=== PATIENT | female | born 1970 | race Caucasian/White ===

== ENCOUNTER 2020-09-26 09:38 | Emergency (ER) | payer OTHER, SELFPAY ==
[2020-09-26] VITALS (15 sets, daily range): BP systolic 115–203; BP diastolic 75–147; PULSE 76–120; RESP 12–20; TEMP 36.9; O2SAT 96–100; BMI 23.3
--- NOTE | 2020-09-26 09:41 | ED_ITS ---
Documented by User: ARY Navas 09/26/20 11:26 HPI - Syncope General: Chief Complaint: Syncope Stated Complaint: SYNCOPE, NOSE, NECK PAIN Time Seen by Provider: 09/26/20 09:41 Source: patient Mode of arrival: ambulatory Limitations: no limitations History of Present Illness: HPI narrative: 49-year-old female comes in today for complaints of syncopal episode. Patient reports that she got up to go get dressed from bed and became lightheaded so she sat back down, after sitting down patient does not remember getting back up and walking down the robert and then passing out. Patient has some ecchymosis to the nasal bridge with some mild swelling. Patient is alert and oriented at baseline. Patient takes no routine medications. Patient does have a history of hypertension with medication use. Patient reports no chest pain. Patient does report mild headache since falling. Review of Systems General: Reports: 10 or more systems reviewed and unremarkable except in HPI and below Neuro: Reports: other (syncope) ON LICENSE OF [facility] ED PFSH: Medical History (Updated 09/26/20 @ 12:28 by Ciro Garcia DO) Hypertension Physical Exam Const: COMMON NORMALS: no acute distress, patient oriented x3 and alert GENERAL APPEARANCE: cooperative HENMT: COMMON NORMALS: Normal external nose present HEAD & SCALP: normal to inspection NOSE: Normal external nose present MOUTH: Normal oral and palatal mucosa present THROAT: posterior oropharynx normal OTHER: Mild ecchymosis to the nasal bridge with some swelling, no blood in the naris, small abrasion to the right upper lip. Eye: GENERAL EYE: appearance normal, both eyes and all related structures Neck/C-Spine: COMMON NORMALS: full ROM Lymph: LYMPHATIC: no lymphadenopathy noted Chest: COMMONS NORMALS: normal inspection of the chest Resp: COMMON NORMALS: normal respiratory effort EFFORT & INSPECTION: Yes able to speak in complete sentences Cardio: COMMON NORMALS: regular rate and regular rhythm RATE: regular rate RHYTHM: regular rhythm GI: COMMON NORMALS: non-tender Back/Pelvis: COMMON NORMALS: thoracic and lumbar spine normal to inspection Extremity: COMMON NORMALS: normal to inspection Neuro: COMMON NORMALS: patient oriented x3 and moves all extremities SENSORIUM/ORIENTATION: Yes alert SPEECH: speech normal MOTOR EXAM: 5/5 motor strength present throughout Psych: COMMON NORMALS: mental status grossly normal and cooperative Skin: COMMON NORMALS: no rashes or lesions noted GENERAL SKIN EXAM: no r ashes or lesions noted Course ED course: 1005, was notified by Dr. Euceda, radiologist, patient has significant subarachnoid bleeding. Reviewed with Dr. Garcia who assumed care of patient. Vital Signs: Vital signs: Vital Signs Temperature 98.4 F 09/26/20 09:39 Pulse Rate 85 09/26/20 13:07 Respiratory Rate 16 09/26/20 13:07 Blood Pressure 115/75 09/26/20 13:07 Pulse Oximetry 99 09/26/20 13:07 MDM - Syncope Lab Data: Labs: Lab Results 09/26/20 09/26/20 09/26/20 Range/Units 08:55 08:55 08:55 WBC 6.5 (4.0-10.0) 10^3/ uL RBC 4.65 (4.1-5.3) 10^6/u L Hgb 13.5 (11.5-15.3) g/dL Hct 41.7 (37.0-47.0) % MCV 89.7 (81-99) fL MCH 29.0 (28.0-34.0) pg MCHC 32.4 (30.0-36.0) g/dL RDW 12.5 (12.1-15.1) % Plt Count 246 (130-400) 10^3/c mm MPV 11.7 H (7.4-10.4) fL Neut % (Auto) 54.7 % Lymph % (Auto) 32.0 % Vilas % (Auto) 10.4 % Eos % (Auto) 2.1 % Baso % (Auto) 0.5 % Neut # (Auto) 3.57 (1.8-7.7) 10^3/u L Lymph # (Auto) 2.1 (0.8-4.8) 10^3/u L Vilas # (Auto) 0.7 (0.2-0.9) 10^3/u L Eos # (Auto) 0.1 (0.0-0.8) 10^3/u L Baso # (Auto) 0.0 (0.0-0.1) 10^3/u L Nucleated RBC % (a uto) 0 % Nucleated RBCs # 0.0 /100WBC PT (12.1-14.9) SECO NDS INR (0.8-1.2) APTT (23.9-36.7) SECO NDS Sodium 137 (136-145) mmol/L Potassium 3.8 (3.5-5.1) mmol/L Chloride 101 (98-107) mmol/L Carbon Dioxide 25 (22-29) mmol/L Anion Gap 14.8 (5-19) BUN 10 (6-20) mg/dL Creatinine 0.7 (0.5-0.9) mg/dL GFR Calculation 88.2 L (90-130) mL/min Glucose 119 H (65-115) mg/dL Calculated Osmolal ity 284 L (285-295) mOsm/k g Calcium 8.9 (8.5-10.5) mg/dL Total Bilirubin 0.2 (0.15-1.2) mg/dL AST 19 (0-32) U/L ALT 16 (0-33) U/L Alkaline Phosphata se 96 (35-105) IU/L Troponin T Baselin e 6 (0-10) ng/L Troponin T 120 Min [place] (0-10) ng/L Delta Troponin T (0-10) ABS# Total Protein 6.9 (6.6-8.7) g/dL Albumin 4.2 (3.5-5.2) g/dL Globulin 2.7 (1.3-4.6) g/dL HCG, Qual (Negative) Urine Color (Yellow) Urine Appearance (CLEAR) Urine pH (5-7) Ur Specific Gravit y (1.005-1.030) Urine Protein (Negative) Urine Glucose (UA) (Normal) Urine Ketones (Negative) Urine Blood (Negative) Urine Nitrate (Negative) Urine Bilirubin (Negative) Prot Sulfosalicyli c Acd (Negative) Urine Urobilinogen (Negative) mg/dL Ur Leukocyte Melinda ase (Negative) SARS-CoV-2 Ag (Rap id) (Negative) 09/26/20 09/26/20 09/26/20 Range/Units 08:55 10:05 10:55 WBC (4.0-10.0) 10^3/ uL RBC (4.1-5.3) 10^6/u L Hgb (11.5-15.3) g/dL Hct (37.0-47.0) % MCV (81-99) fL MCH (28.0-34.0) pg MCHC (30.0-36.0) g/dL RDW (12.1-15.1) % Plt Count (130-400) 10^3/c mm MPV (7.4-10.4) fL Neut % (Auto) % Lymph % (Auto) % Vilas % (Auto) % Eos % (Auto) % Baso % (Auto) % Neut # (Auto) (1.8-7.7) 10^3/u L Lymph # (Auto) (0.8-4.8) 10^3/u L Vilas # (Auto) (0.2-0.9) 10^3/u L Eos # (Auto) (0.0-0.8) 10^3/u L Baso # (Auto) (0.0-0.1) 10^3/u L Nucleated RBC % (a uto) % Nucleated RBCs # /100WBC PT (12.1-14.9) SECO NDS INR (0.8-1.2) APTT (23.9-36.7) SECO NDS Sodium (136-145) mmol/L Potassium (3.5-5.1) mmol/L Chloride (98-107) mmol/L Carbon Dioxide (22-29) mmol/L Anion Gap (5-19) BUN (6-20) mg/dL Creatinine (0.5-0.9) mg/dL GFR Calculation (90-130) mL/min Glucose (65-115) mg/dL Calculated Osmolal ity (285-295) mOsm/k g Calcium (8.5-10.5) mg/dL Total Bilirubin (0.15-1.2) mg/dL AST (0-32) U/L ALT (0-33) U/L Alkaline Phosphata se (35-105) IU/L Troponin T Baselin e (0-10) ng/L Troponin T 120 Min [place] 9.20 (0-10) ng/L Delta Troponin T 3.20 (0-10) ABS# Total Protein (6.6-8.7) g/dL Albumin (3.5-5.2) g/dL Globulin (1.3-4.6) g/dL HCG, Qual Negative (Negative) Urine Color Yellow (Yellow) Urine Appearance Clear (CLEAR) Urine pH 9 H (5-7) Ur Specific Gravit y 1.015 (1.005-1.030) Urine Protein Neg (Negative) Urine Glucose (UA) Norm (Normal) Urine Ketones Negative (Negative) Urine Blood Neg (Negative) Urine Nitrate Negative (Negative) Urine Bilirubin Neg (Negative) Prot Sulfosalicyli c Acd Negative (Negative) Urine Urobilinogen Norm (Negative) mg/dL Ur Leukocyte Melinda ase Negative (Negative) SARS-CoV-2 Ag (Rap id) (Negative) 09/26/20 09/26/20 Range/Units 10:55 11:35 WBC (4.0-10.0) 10^3/ uL RBC (4.1-5.3) 10^6/u L Hgb (11.5-15.3) g/dL Hct (37.0-47.0) % MCV (81-99) fL MCH (28.0-34.0) pg MCHC (30.0-36.0) g/dL RDW (12.1-15.1) % Plt Count (130-400) 10^3/c mm MPV (7.4-10.4) fL Neut % (Auto) % Lymph % (Auto) % Vilas % (Auto) % Eos % (Auto) % Baso % (Auto) % Neut # (Auto) (1.8-7.7) 10^3/u L Lymph # (Auto) (0.8-4.8) 10^3/u L Vilas # (Auto) (0.2-0.9) 10^3/u L Eos # (Auto) (0.0-0.8) 10^3/u L Baso # (Auto) (0.0-0.1) 10^3/u L Nucleated RBC % (a uto) % Nucleated RBCs # /100WBC PT 12.20 (12.1-14.9) SECO NDS INR 0.88 (0.8-1.2) APTT 24.0 (23.9-36.7) SECO NDS Sodium (136-145) mmol/L Potassium (3.5-5.1) mmol/L Chloride (98-107) mmol/L Carbon Dioxide (22-29) mmol/L Anion Gap (5-19) BUN (6-20) mg/dL Creatinine (0.5-0.9) mg/dL GFR Calculation (90-130) mL/min Glucose (65-115) mg/dL Calculated Osmolal ity (285-295) mOsm/k g Calcium (8.5-10.5) mg/dL Total Bilirubin (0.15-1.2) mg/dL AST (0-32) U/L ALT (0-33) U/L Alkaline Phosphata se (35-105) IU/L Troponin T Baselin e (0-10) ng/L Troponin T 120 Min [place] (0-10) ng/L Delta Troponin T (0-10) ABS# Total Protein (6.6-8.7) g/dL Albumin (3.5-5.2) g/dL Globulin (1.3-4.6) g/dL HCG, Qual (Negative) Urine Color (Yellow) Urine Appearance (CLEAR) Urine pH (5-7) Ur Specific Gravit y (1.005-1.030) Urine Protein (Negative) Urine Glucose (UA) (Normal) Urine Ketones (Negative) Urine Blood (Negative) Urine Nitrate (Negative) Urine Bilirubin (Negative) Prot Sulfosalicyli c Acd (Negative) Urine Urobilinogen (Negative) mg/dL Ur Leukocyte Melinda ase (Negative) SARS-CoV-2 Ag (Rap id) Negative (Negative) EKG Data^: EKG 1: Attestation: I personally reviewed and interpreted this EKG as follows: (957, EKG shows sinus rhythm, regular rate at 77 bpm, artifact is present, minimal ST depression is noted in lead V3 and lead III, no prior exam is available for comparison.) Discharge Plan Discharge Patient Disposition: Xfer Short-Term Hosp Clinical Impression: Subarachnoid hemorrhage, Hypertension Condition: Critical Coding Level of Care Code ED Coronary Clinical Specialist for Chg Fwd Exam Comprehensive Documented by User: Ciro Garcia DO 09/26/20 15:43 HPI - Syncope General: Chief Complaint: Syncope Stated Complaint: SYNCOPE, NOSE, NECK PAIN Time Seen by Provider: 09/26/20 09:41 History of Present Illness: HPI narrative: Patient presented to the emergency room while I was assisting with a critical patient in the viral ICU. Upon my return to [facility] with the nurse practitioner had seen her when she first arrived. She had come in complaining that she got dizzy and nauseous stumbled and fell. She reports a severe headache. She previously had been treated for hypertension but is not been taking her medications lately because she felt like things had improved. She was awake and alert and oriented with a GCS of 15 when I first encountered the patient in the CT scanner suite. Patient returned to the trauma room for further examination. MD complaint: felt faint, almost passed out, collapsed and other (Sudden onset of headache) Onset (ago): hour(s) Prodromal symptoms: lightheaded and nausea/vomiting Witnessed: Yes - by Bystander Associated symptoms: Reports headache(s), lightheadedness, nausea, vertigo and weakness; Deny fever(s) Treatments prior to arrival: none Review of Systems Const: Denies: fever(s), chills, body aches, change in appetite, fatigue or malaise ENMT: Denies: throat pain, ear or mastoid pain, nasal discharge or nasal congestion Card: Reports: lightheadedness Resp: Denies: dyspnea, productive cough or non-productive cough GI: Reports: nausea : Denies: flank pain, difficulty voiding, dysuria, urinary frequency or urinary urgency Skin/Breast: Denies: rash or pruritus Neuro: Reports: headache(s), weakness in extremities, dizziness and vertigo ON LICENSE OF [facility] ED PFSH: Medical History (Updated 09/26/20 @ 12:28 by Ciro Garcia DO) Hypertension Physical Exam Const: COMMON NORMALS: no acute distress and patient oriented x3 GENERAL APPEARANCE: cooperative and comfortable ORIENTATION/CONSCIOUSNESS: Yes awake, Yes oriented to person, Yes oriented to place and Yes oriented to time HENMT: COMMON NORMALS: normocephalic, atraumatic and hearing grossly normal bilaterally HEAD & SCALP: normocephalic and atraumatic Neck/C-Spine: COMMON NORMALS: full ROM, no lymphadenopathy, supple and no JVD Resp: COMMON NORMALS: normal respiratory effort, No retractions, No use of accessory muscles and clear to auscultation bilaterally AUSCULTATION: clear to auscultation bilaterally Cardio: COMMON NORMALS: no JVD, regular rate, regular rhythm and No murmurs present (Cardio) RATE: regular rate RHYTHM: regular rhythm GI: COMMON NORMALS: Soft to palpation and No hepatosplenomegaly present AUSCULTATION: Yes normoactive bowel sounds PALPATION: Yes Soft to palpation, No Tenderness to palpation present (GI), No Guarding due to palpation present (GI) and Yes No hepatosplenomegaly present Extremity: COMMON NORMALS: normal to inspection, capillary refill normal, no clubbing, cyanosis or edema, no calf tenderness and no pedal edema Neuro: COMMON NORMALS: patient oriented x3, CN's II-XII intact bilaterally, moves all extremities, no focal motor deficits and no sensory deficits noted SENSORIUM/ORIENTATION: Yes oriented to person, Yes oriented to place and Yes oriented to time COORDINATION/BALANCE: [id number]-[id number] test normal and vkjx-um-[id number] test normal SPEECH: speech normal SENSORY EXAM: No sensory level loss detected MOTOR EXAM: 5/5 motor strength present throughout COORDINATION: araaqg-nd-upcc test normal and yrum-bj-[id number] test normal OTHER: GCS on arrival of 15 Skin: COMMON NORMALS: no rashes or lesions noted GENERAL SKIN EXAM: no rashes or lesions noted Procedures Intubation Time out performed: Yes sedative: Etomidate paralytic: Succinylcholine Laryngoscope: fiber optic video scope Assist Device Used: fiber optic device ET Tube Size: 8.5 ET Tube Uncuffed: No Tube Secured Depth (cm): 22 Tube Secured Location: teeth Tube Placement Confirmation: visualized tube passing through cords, equal breath sounds bilaterally, no breath sounds over epigastrium and confirmation by capnometry Patient Tolerated Procedure: well Intubation Complications: none Additional Comments: Immediately after intubation patient had some mild hypoxia which was transient we confirmed capnometry and confirmed tube placement by auscultation, which is also later verified by chest x-ray. FiO2 was increased until oxygen saturation achieved 100% and then we decreased the FiO2. Patient is sats improved to normal and stabilized. Course Vital Signs: Vital signs: Vital Signs Temperature 98.4 F 09/26/20 09:39 Pulse Rate 85 12/24/20 13:07 Respiratory Rate 16 09/26/20 13:07 Blood Pressure 115/75 09/26/20 13:07 Pulse Oximetry 99 09/26/20 13:07 MDM - Syncope MDM Narrative: Medical decision making narrative: Initially on arrival patient awake alert and oriented she did become more sedated after initial read of the CT seen a large subarachnoid hemorrhage which was confirmed by radiology. Patient began getting nauseous and was complaining of worsening dizziness and was noted to be a little more sedate than she was initially. Her initial blood pressures were in the 200 systolic range. Discussed with the patient and her who is present I recommend that we electively intubate her to prevent increased bleeding from vomiting. They agreed. I also feel will be safest for her transport. Will transfer her to [facility] there were no available neurosurgical options in [place]. Talk to neurosurgery at [place] they do have interventional available they can do clip or coil if needed. Patient was given Keppra started on a nicardipine drip she was started on fentanyl and propofol for sedation. We achieved a systolic pressure of 120 with a map below 100. She has been given TXA and Keppra as well. She is stable at this time to the extent we are able to manage will transfer her by air ambulance to [facility]. Lab Data: Labs: Lab Results 09/26/20 09/26/20 09/26/20 Range/Units 08:55 08:55 08:55 WBC 6.5 (4.0-10.0) 10^3/ uL RBC 4.65 (4.1-5.3) 10^6/u L Hgb 13.5 (11.5-15.3) g/dL Hct 41.7 (37.0-47.0) % MCV 89.7 (81-99) fL MCH 29.0 (28.0-34.0) pg MCHC 32.4 (30.0-36.0) g/dL RDW 12.5 (12.1-15.1) % Plt Count 246 (130-400) 10^3/c mm MPV 11.7 H (7.4-10.4) fL Neut % (Auto) 54.7 % Lymph % (Auto) 32.0 % Vilas % (Auto) 10.4 % Eos % (Auto) 2.1 % Baso % (Auto) 0.5 % Neut # (Auto) 3.57 (1.8-7.7) 10^3/u L Lymph # (Auto) 2.1 (0.8-4.8) 10^3/u L Vilas # (Auto) 0.7 (0.2-0.9) 10^3/u L Eos # (Auto) 0.1 (0.0-0.8) 10^3/u L Baso # (Auto) 0.0 (0.0-0.1) 10^3/u L Nucleated RBC % (a uto) 0 % Nucleated RBCs # 0.0 /100WBC PT (12.1-14.9) SECO NDS INR (0.8-1.2) APTT (23.9-36.7) SECO NDS Sodium 137 (136-145) mmol/L Potassium 3.8 (3.5-5.1) mmol/L Chloride 101 (98-107) mmol/L Carbon Dioxide 25 (22-29) mmol/L Anion Gap 14.8 (5-19) BUN 10 (6-20) mg/dL Creatinine 0.7 (0.5-0.9) mg/dL GFR Calculation 88.2 L (90-130) mL/min Glucose 119 H (65-115) mg/dL Calculated Osmolal ity 284 L (285-295) mOsm/k g Calcium 8.9 (8.5-10.5) mg/dL Total Bilirubin 0.2 (0.15-1.2) mg/dL AST 19 (0-32) U/L ALT 16 (0-33) U/L Alkaline Phosphata se 96 (35-105) IU/L Troponin T Baselin e 6 (0-10) ng/L Troponin T 120 Min [place] (0-10) ng/L Delta Troponin T (0-10) ABS# Total Protein 6.9 (6.6-8.7) g/dL Albumin 4.2 (3.5-5.2) g/dL Globulin 2.7 (1.3-4.6) g/dL HCG, Qual (Negative) Urine Color (Yellow) Urine Appearance (CLEAR) Urine pH (5-7) Ur Specific Gravit y (1.005-1.030) Urine Protein (Negative) Urine Glucose (UA) (Normal) Urine Ketones (Negative) Urine Blood (Negative) Urine Nitrate (Negative) Urine Bilirubin (Negative) Prot Sulfosalicyli c Acd (Negative) Urine Urobilinogen (Negative) mg/dL Ur Leukocyte Melinda ase (Negative) SARS-CoV-2 Ag (Rap id) (Negative) 09/26/20 09/26/20 09/26/20 Range/Units 08:55 10:05 10:55 WBC (4.0-10.0) 10^3/ uL RBC (4.1-5.3) 10^6/u L Hgb (11.5-15.3) g/dL Hct (37.0-47.0) % MCV (81-99) fL MCH (28.0-34.0) pg MCHC (30.0-36.0) g/dL RDW (12.1-15.1) % Plt Count (130-400) 10^3/c mm MPV (7.4-10.4) fL Neut % (Auto) % Lymph % (Auto) % Vilas % (Auto) % Eos % (Auto) % Baso % (Auto) % Neut # (Auto) (1.8-7.7) 10^3/u L Lymph # (Auto) (0.8-4.8) 10^3/u L Vilas # (Auto) (0.2-0.9) 10^3/u L Eos # (Auto) (0.0-0.8) 10^3/u L Baso # (Auto) (0.0-0.1) 10^3/u L Nucleated RBC % (a uto) % Nucleated RBCs # /100WBC PT (12.1-14.9) SECO NDS INR (0.8-1.2) APTT (23.9-36.7) SECO NDS Sodium (136-145) mmol/L Potassium (3.5-5.1) mmol/L Chloride (98-107) mmol/L Carbon Dioxide (22-29) mmol/L Anion Gap (5-19) BUN (6-20) mg/dL Creatinine (0.5-0.9) mg/dL GFR Calculation (90-130) mL/min Glucose (65-115) mg/dL Calculated Osmolal ity (285-295) mOsm/k g Calcium (8.5-10.5) mg/dL Total Bilirubin (0.15-1.2) mg/dL AST (0-32) U/L ALT (0-33) U/L Alkaline Phosphata se (35-105) IU/L Troponin T Baselin e (0-10) ng/L Troponin T 120 Min [place] 9.20 (0-10) ng/L Delta Troponin T 3.20 (0-10) ABS# Total Protein (6.6-8.7) g/dL Albumin (3.5-5.2) g/dL Globulin (1.3-4.6) g/dL HCG, Qual Negative (Negative) Urine Color Yellow (Yellow) Urine Appearance Clear (CLEAR) Urine pH 9 H (5-7) Ur Specific Gravit y 1.015 (1.005-1.030) Urine Protein Neg (Negative) Urine Glucose (UA) Norm (Normal) Urine Ketones Negative (Negative) Urine Blood Neg (Negative) Urine Nitrate Negative (Negative) Urine Bilirubin Neg (Negative) Prot Sulfosalicyli c Acd Negative (Negative) Urine Urobilinogen Norm (Negative) mg/dL Ur Leukocyte Melinda ase Negative (Negative) SARS-CoV-2 Ag (Rap id) (Negative) 09/26/20 09/26/20 Range/Units 10:55 11:35 WBC (4.0-10.0) 10^3/ uL RBC (4.1-5.3) 10^6/u L Hgb (11.5-15.3) g/dL Hct (37.0-47.0) % MCV (81-99) fL MCH (28.0-34.0) pg MCHC (30.0-36.0) g/dL RDW (12.1-15.1) % Plt Count (130-400) 10^3/c mm MPV (7.4-10.4) fL Neut % (Auto) % Lymph % (Auto) % Vilas % (Auto) % Eos % (Auto) % Baso % (Auto) % Neut # (Auto) (1.8-7.7) 10^3/u L Lymph # (Auto) (0.8-4.8) 10^3/u L Vilas # (Auto) (0.2-0.9) 10^3/u L Eos # (Auto) (0.0-0.8) 10^3/u L Baso # (Auto) (0.0-0.1) 10^3/u L Nucleated RBC % (a uto) % Nucleated RBCs # /100WBC PT 12.20 (12.1-14.9) SECO NDS INR 0.88 (0.8-1.2) APTT 24.0 (23.9-36.7) SECO NDS Sodium (136-145) mmol/L Potassium (3.5-5.1) mmol/L Chloride (98-107) mmol/L Carbon Dioxide (22-29) mmol/L Anion Gap (5-19) BUN (6-20) mg/dL Creatinine (0.5-0.9) mg/dL GFR Calculation (90-130) mL/min Glucose (65-115) mg/dL Calculated Osmolal ity (285-295) mOsm/k g Calcium (8.5-10.5) mg/dL Total Bilirubin (0.15-1.2) mg/dL AST (0-32) U/L ALT (0-33) U/L Alkaline Phosphata se (35-105) IU/L Troponin T Baselin e (0-10) ng/L Troponin T 120 Min [place] (0-10) ng/L Delta Troponin T (0-10) ABS# Total Protein (6.6-8.7) g/dL Albumin (3.5-5.2) g/dL Globulin (1.3-4.6) g/dL HCG, Qual (Negative) Urine Color (Yellow) Urine Appearance (CLEAR) Urine pH (5-7) Ur Specific Gravit y (1.005-1.030) Urine Protein (Negative) Urine Glucose (UA) (Normal) Urine Ketones (Negative) Urine Blood (Negative) Urine Nitrate (Negative) Urine Bilirubin (Negative) Prot Sulfosalicyli c Acd (Negative) Urine Urobilinogen (Negative) mg/dL Ur Leukocyte Melinda ase (Negative) SARS-CoV-2 Ag (Rap id) Negative (Negative) Critical Care Time Critical Care Time: Critical Care Time: Yes Total Critical Care Time: 45 Attestation: This case had a high probability of a clinically significant, sudden, or life threatening deterioration of this patient's condition which required my full and direct attention, intervention and personal management. Discharge Plan Discharge Patient Disposition: Xfer Short-Term Hosp Clinical Impression: Subarachnoid hemorrhage, Hypertension Condition: Critical Coding Level of Care Code ED Coronary Clinical Specialist for Kisha Fwd Exam Comprehensive
--- NOTE | 2020-09-26 09:48 | CT_ITS ---
WS: [id number] CT CERVICAL SPINE HISTORY: fall head injury, syncope TECHNIQUE: Contiguous 2.5 mm axial imaging performed through the entire cervical spine. Sagittal and coronal reformats also performed. All CT scans at [facility] use at least one of these do se optimization techniques: automated exposure control; mA and/or kV adjustment per patient size (inc ludes targeted exams where dose is matched to clinical indication); or iterative reconstruction. DLP: 522.5 mGy.cm COMPARISON: None available. Normal cervical alignment. Craniocervical junction, atlantodental interval and C1-C2 alignment is nor mal. No cervical spine fracture. No high-grade central or foraminal stenosis. Lung apices are clear. Craniocervical junction is normal. 5 mm LEFT thyroid nodule. Larger 10 mm nodu le in the inferior LEFT thyroid lobe. CT/CT cervical spin wo con* [id number] IMPRESSION: No acute cervical spine fracture.
--- NOTE | 2020-09-26 09:48 | CT_ITS ---
WS: [id number] CT HEAD NONCONTRAST HISTORY: fall head injury, syncope TECHNIQUE: Contiguous axial imaging performed through the brain in 2.5 mm imaging. Bone and soft tiss ue windows. Sagittal and coronal reformats reviewed. All CT scans at [facility] use at le ast one of these dose optimization techniques: automated exposure control; mA and/or kV adjustment pe r patient size (includes targeted exams where dose is matched to clinical indication); or iterative r econstruction. DLP: 861.7 mGy.cm COMPARISON: None available. Large acute subarachnoid hemorrhage centered in the basal cisterns and quadrigeminal plate. Large ramandeep unt of blood along the anterior interhemispheric falx and the sylvian fissures. No intraventricular b lood. There is blood within the interpedicular cistern. No significant atrophy or midline shift. Ventricles: No intraventricular blood identified. Paranasal sinuses: As visualized are clear. Mastoid air cells: Well pneumatized. Calvarium and scalp: Skull is intact with no soft tissue edema or swelling. CT/CT head wo con* [id number] IMPRESSION: 1. Large subarachnoid hemorrhage. Largest amount of blood near the quadrigemin al plate cistern. 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 2. No intraventricular blood identified. 3. No midline shift. Notified ARY Navas at 09/26/2020 10:21 AM.
--- NOTE | 2020-09-26 09:48 | ECG_ITS ---
[facility] Test Date: 2020-09-26 Pat Name: Deedee Pérez Department: Room: Gender: Female Digital Artist: : 1970 Requested By: Allan Davis Order Number: [id number] Aaron MD: Mark Flores M.D. Measurements Intervals [place] Rate: 77 P: 20 MO: 152 QRS: 16 QRSD: 87 T: 12 QT: 365 QTc: 415 Interpretive Statements SINUS RHYTHM MINIMAL ST DEPRESSION [0.025+ mV ST DEPRESSION] No previous ECG available for comparison Electronically Signed On 09-27-2020 17:59:54 INDUSTRIAL ECOLOGY TECHNICIAN by Mark Flores M.D. [email or web address] [facility]zedaway[facility] hospitalNanoVelosmem[facility].[employer]/store/NU/[id number] f
[2020-09-26 10:07] LABS: Basophils % 0.5 %; Eosinophils # 0.1 10^3/uL (0.0-0.8); Eosinophils % 2.1 %; Hematocrit 41.7 % (37.0-47.0); Hemoglobin 13.5 g/dL (11.5-15.3); Lymphocytes # 2.1 10^3/uL (0.8-4.8); Mean Corpuscular HGB Conc 32.4 g/dL (30.0-36.0); Mean Corpuscular Volume 89.7 fL (81-99); Mean Platelet Volume 11.7 fL (7.4-10.4); Monocytes # 0.7 10^3/uL (0.2-0.9); Monocytes % 10.4 %; Neutrophils # 3.57 10^3/uL (1.8-7.7); Neutrophils % 54.7 %; Nucleated Red Blood Cells % 0 %; Platelet Count 246 10^3/cmm (130-400); Red Blood Count 4.65 10^6/uL (4.1-5.3); Red Cell Distribution Width 12.5 % (12.1-15.1); White Blood Count 6.5 10^3/uL (4.0-10.0)
--- NOTE | 2020-09-26 10:10 | PC.NURSE ---
Pt to CT
[2020-09-26 10:12] LABS: Add Urine Microscopic? NO
[2020-09-26 10:21] LABS: Bilirubin Urine Neg (Negative); Blood Urine Neg (Negative); Glucose Urine UA Norm (Normal); Ketones Urine Negative (Negative); Leukocyte Esterase Urine Negative (Negative); Nitrate Urine Negative (Negative); Protein Urine Neg (Negative); Specific Gravity, Urine 1.015 (1.005-1.030); Sulfosalicylic Acid Urine Negative (Negative); Urine Appearance Clear (CLEAR); Urine Color Yellow (Yellow); Urobilinogen Urine Norm (Negative); pH Urine 9 (5-7)
[2020-09-26 10:21] LABS: HCG, Serum Qual Negative (Negative)
[2020-09-26 10:28] LABS: Alanine Aminotransferase 16 U/L (0-33); Albumin Level 4.2 g/dL (3.5-5.2); Alkaline Phosphatase 96 IU/L (35-105); Anion Gap 14.8 (5-19); Aspartate Amino Transferase 19 U/L (0-32); Blood Urea Nitrogen 10 mg/dL (6-20); Calcium 8.9 mg/dL (8.5-10.5); Carbon Dioxide 25 mmol/L (22-29); Chloride 101 mmol/L (98-107); Globulin 2.7 g/dL (1.3-4.6); Glomerular Filtration Rate 88.2 mL/min (90-130); Glucose 119 mg/dL (65-115); Osmolality Calculated 284 mOsm/kg (285-295); Potassium 3.8 mmol/L (3.5-5.1); Sodium 137 mmol/L (136-145); Total Bilirubin 0.2 mg/dL (0.15-1.2); Total Protein 6.9 g/dL (6.6-8.7)
[2020-09-26 10:30] LABS: Troponin(5th) Baseline 6 ng/L (0-10)
[2020-09-26] MEDS: nicardipine 20 MG/200 ML PREMIX 50 MG IV (10:40)
[2020-09-26] MEDS: ondansetron 2 mg/ML SDV 2 mL 4 MG IVP (10:45)
[2020-09-26] MEDS: succinylcholine 20 mg/mL SDV 10mL 100 MG IVP (10:51)
[2020-09-26] MEDS: propofol 1,000 MG/100 ML INJ 11.4 MG IV (10:54)
[2020-09-26] MEDS: vecuronium 10 mg SDV IVP (10:57)
[2020-09-26] MEDS: propofol 10 mg/mL SDV 20 mL 50 MG IVP (10:59)
--- NOTE | 2020-09-26 10:59 | XRR_ITS ---
PROCEDURE INFORMATION: Exam: XR Chest, 1 View Exam date and time: 09/26/2020 10:59 AM Age: 49 years old Clinical indication: Device placement; Ett placement (vent status); Patient HX: Post intubation film TECHNIQUE: Imaging protocol: XR of the chest Views: 1 view. COMPARISON: No relevant prior studies available. FINDINGS: Tubes, catheters and devices: Endotracheal tube tip resides 3.5 cm above the carol. Enteric tube extends to the abdomen. Lungs: No focal consolidation. Pleural space: Unremarkable. No pleural effusion. No pneumothorax. Heart/Mediastinum: Normal heart size. Bones/joints: Unremarkable. Other findings: Interstitial crowding. XR/XR chest 1V portable [id number] IMPRESSION: 1. No focal consolidation.
--- NOTE | 2020-09-26 11:19 | PC.NURSE ---
Pt was moved to room [address], intubation set up. See MAR for med times. Pt intubated at [address] Garcia with 8.0 tube, 22 at the teeth. Pt started at FiO2 of 50% and sats dropped to 84%. Pt titrated to 100% FiO2 and sats increased to 100%. Pt then titrated down by RT. 18Fr OG placed at 1056, 16Fr dutta placed at 1100 with good urine return. XR performed at bedside at 1108.
--- NOTE | 2020-09-26 11:24 | PC.NURSE ---
C-Collar was removed by Dr Garcia prior to intubation. Modified NIH performed by Dr Garcia at 1050 prior to intubation and pt was able to answer questions appropriately and move all extremities. Pt only complaint was nausea.
--- NOTE | 2020-09-26 11:48 | ECG_ITS ---
[facility] Test Date: 2020-09-26 Pat Name: Deedee Pérez Department: Room: Gender: Female Social Worker Clinical: : 1970 Requested By: Allan Davis Order Number: [id number] Aaron MD: Marjorie Barron M.D. Measurements Intervals [place] Rate: 100 P: 51 ME: 138 QRS: 10 QRSD: 89 T: 31 QT: 342 QTc: 442 Interpretive Statements SINUS TACHYCARDIA POSSIBLE LEFT ATRIAL ENLARGEMENT [-0.1mV P WAVE IN V1/V2] NONSPECIFIC ST & T-WAVE ABNORMALITY No previous ECG available for comparison Electronically Signed On 09-29-2020 10:09:20 OCCUPATIONAL THERAPIST'S ASSISTANT by Marjorie Barron M.D. [id number]
[2020-09-26 11:49] LABS: INR 0.88 (0.8-1.2)
[2020-09-26 11:58] LABS: SARS Covid-2 Antigen Negative (Negative)
== END 2020-09-26 13:08 | disposition short-term general hospital (02) ==
PROVIDERS: Nurse Practitioner Family; Emergency Provider Family Medicine
DX: I60.9 Nontraumatic subarachnoid hemorrhage, unspecified (principal); I10 Essential (primary) hypertension; W01.0XXA Fall on same level from slipping, tripping and stumbling without subsequent striking against object, initial encounter
CPT/HCPCS: 12345; 31500; 36415; 51702; 70450; 71045; 72125; 80053; 81003; 84484; 84703; 85025; 85610; 85730; 87426; 93005; 94002; 94799; 96365; 96366; 96367; 96368; 96375; 99283; 99291; J0330; J1953; J2405; J2704; J3010; J3490